=== PATIENT | female | born 1960 | race Caucasian/White ===

== ENCOUNTER 2025-01-27 11:50 | Emergency (ER) | payer MEDICARE, OTHER, SELFPAY ==
[2025-01-27 12:00] VITALS: BP 136/99
[2025-01-27 14:00] VITALS: BMI 24.8
[2025-01-27 14:13] VITALS: BP 118/85
--- NOTE | 2025-01-27 15:34 | ED.GENMED ---
History of Present Illness
General
Chief Complaint: Female Mdm Sr/Gu symptoms
Source: patient
Exam Limitations: none
Time Seen by Provider: 01/27/25 15:18
History of Present Illness
History of Present Illness:
See MDM
Past History
Past History
ED Past Medical History: Hypercholesterolemia
ED Past Surgical History: Urological
Social History
Tobacco: Non-smoker
Alcohol: None
Phy Exam
Physical Exam
Physical Exam:
See MDM
Course
Vital Signs
Initial and Last Documented VS:
Initial Vital Signs
Temp Pulse Resp BP Pulse Ox
98.3 F 89 18 136/99 99
01/27/25 12:00 01/27/25 12:00 01/27/25 12:00 01/27/25 12:00 01/27/25 12:00
Last Documented Vital Signs
Temp Pulse Resp BP Pulse Ox
98.3 F 74 16 118/85 100
01/27/25 12:00 01/27/25 14:13 01/27/25 14:13 01/27/25 14:13 01/27/25 14:13
Procedures
Incision/Drainage/Joint Aspiration
Left Lateral Distal Vagina:
Anethesia: 1% Lidocaine
Preparation: cleaned with alcohol wipe
Type of procedure: incise and drain
Nature of site: other (Sebaceous cyst)
Description of abscess: less than 3cm
Loculations broken up: No
How much fluid was obtained?: scant amount
Fluid description: purulent
Treatment: left open for drainage
MDM/Problems Addressed
Differential Diagnosis Includes:
HPI and MDM Narrative:
64-year-old female presenting with swelling and tenderness to the outside of her left vagina. Patient states she had a small area of irritation there for several years but now it is starting to get red and draining. She denies fevers.
On exam, there is evidence of infected sebaceous cyst versus folliculitis. It is only about a centimeter in circumference. Patient gave verbal consent for incision and drainage
Physical exam
General: Well appearing and non-toxic
HEENT: protecting airway
Neck: appears supple
CV: No evidence of cyanosis
Resp: No accessory muscle use
Abd: Non-distended
OCCUPATIONAL THER: Nurse [place] at bedside as student. Small left external vaginal abscess measuring 1 cm
Extremities: No deformities
Neuro: alert
Psych: Normal affect
Skin: Intact
Problems Addressed including Acute and Chronic Conditions affecting care:
1. Vaginal sebaceous cyst
Acuity: acute
Prognosis: stable
Details: Patient gave verbal consent for incision and drainage. Given the mild surrounding erythema, will start Augmentin
Updates
Incision and drainage performed. I was able to express the sebaceous cyst. Patient feeling better and tolerated procedure
Differential Diagnosis (but not limited to): Sebaceous cyst, folliculitis
Testing considered: Blood work
Drug therapy (if applicable): OTC meds, please see d/c instruction regarding Rx drugs
Amount and/or Complexity of Data Reviewed
Clinical info obtained from: Patient
External data reviewed: N/A
Labs I independently reviewed (but not limited to): N/A
Radiology: N/A
Pulse Ox: not hypoxic
EKG independently reviewed: N/A
Switch Technician: N/A
Critical Care: N/A
Risk of Complication:
Social Determinants of health: Good social support
Discussed with other providers: N/A
Escalation of Care includes Admit/Obs: After being observed in the Emergency Department, pt stable for discharge.
Occasional wrong word or 'sound a like' substitutions may have occurred due to the inherent limitations of voice recognition software. Read the chart carefully and recognize, using context, where substitutions have occurred.
*Critical Care Note
Total Time (30-74mins, 75-104mins- exclusive of procedures): Not Applicable
ED Attending Note
-
Portions of this chart may have been created with voice recognition software.� Occasional wrong word or��sound alike� substitutions may have occurred due to the inherent limitations of voice recognition software.
Discharge Plan
Departure
Patient Disposition: Home (Routine Discharge)
Date of Disposition: 01/27/25
Time of Disposition: 15:46
Patient with high blood pressure during this ER visit?: No
Discharge Problem:
Sebaceous cyst
Instructions: Epidermal Cyst (DC)
Prescriptions:
New
amoxicillin-pot clavulanate 875-125 mg tablet
1 tab PO BID Qty: 14 0RF
Referrals:
Richi Keys MD [Family Provider] -
Activity Restrictions/Additional Instructions:
Please return for any worsening symptoms.
You may return at any time if you have further concerns.
Please follow up with your doctor at the first available appointment, preferably this week.
Thank you for choosing [facility].
Interventions
Interventions:
*Risk Screen - Suicide Last Done: 01/27/25 12:00
*General Assessment Last Done: 01/27/25 12:00
*Neglect/Abuse Screening Last Done: 01/27/25 14:01
*ED- Fall Risk Assessment Last Done: 01/27/25 14:01
*ED COVID-19 Vaccine History Last Done: 01/27/25 14:01
Discharge Date and Time
Print Language: PERSIAN
[2025-01-27] MEDS: AUGMENTIN 875 MG/125 MG 1 TABLET PO (16:18)
== END 2025-01-27 16:20 | disposition home or self-care (01) ==
LOC: EMR 11:50
PROVIDERS: EMERGENCY PHYSICIAN Student in an Organized Health Care Education/Training Program; FAMILY PHYSICIAN Family Medicine
DX: L72.3 Sebaceous cyst (principal); E78.00 Pure hypercholesterolemia, unspecified
CPT/HCPCS: 10060; 99283